=== PATIENT | male | born 1940 ===

== ENCOUNTER → 2020-07-02 08:59 | Outpatient (POV) | payer SELFPAY | PROVIDERS: Visit Provider Audiologist | DX: Z00.00 Encounter for general adult medical examination without abnormal findings (principal) ==

== ENCOUNTER → 2020-07-16 09:47 | Outpatient (POV) | payer SELFPAY | PROVIDERS: Visit Provider Audiologist | DX: Z00.00 Encounter for general adult medical examination without abnormal findings (principal) ==